=== PATIENT | female | born 1960 | race Caucasian/White ===

== ENCOUNTER → 2017-08-07 | Outpatient (CLI) | payer BC ==
[~2017-08-07] MED LIST: RNT150T PO
--- NOTE | 2017-08-07 18:13 | Diagnostic Imaging Report ---
Bilateral screening mammogram 2D views with tomosynthesis. The current study was also evaluated with a Computer Aided Detection (CAD) system. INDICATION: Screening. No current complaints stated on the questionnaire. COMPARISON: 07/15/2015. FINDINGS: The breasts are composed of heterogeneously dense parenchyma which may decrease mammographic sensitivity. Allowing for technique and positional differences, no suspicious change is seen. IMPRESSION: No significant change. ACR BI-RADS Category 2: Benign findings. Result letter will be mailed to the patient. Note: At least 10% of breast cancer is not imaged by mammography. Dictated by: Dictated on workstation # [id number]
== END ==
LOC: RAD 15:21
PROVIDERS: ATTEND Nurse Practitioner Family
DX: Z12.31 Encounter for screening mammogram for malignant neoplasm of breast (principal)
CPT/HCPCS: 77067

== ENCOUNTER → 2018-02-11 | Outpatient (CLI) | payer BC ==
--- NOTE | 2018-02-11 15:18 | Diagnostic Imaging Report ---
INDICATION: Fall with pain to the right third and fourth fingers. TIME OF EXAMINATION: 3:22 PM. FINDINGS: Three views of the right hand were obtained. The metacarpals are intact. The phalanges appear intact. No fractures are seen. The soft tissues are unremarkable. The carpus is unremarkable. IMPRESSION: No acute bony abnormality is detected. Dictated by: Dictated on workstation # [id number]
== END ==
LOC: RAD 14:54
PROVIDERS: ATTEND Nurse Practitioner Family
DX: M79.644 Pain in right finger(s) (principal); W19.XXXA Unspecified fall, initial encounter
CPT/HCPCS: 73130

== ENCOUNTER 2019-05-26 10:30 | Outpatient (CLI) | payer BC ==
[~2019-05-26] VITALS: Ht 172.7 cm; Wt 76.9 kg
== END 2019-05-26 11:15 | disposition home or self-care (01) ==
LOC: PREOP 10:30
PROVIDERS: ATTEND Surgery
DX: Z01.818 Encounter for other preprocedural examination (principal)

== ENCOUNTER 2019-05-27 09:09 | Day surgery (SDC) | payer BC ==
[2019-05-27] MEDS ORDERED: NS IV 500 ML 500 ML ONE (09:17)
--- NOTE | 2019-05-27 09:33 | Conscious Sedation/ASA ---
Conscious Sedation Pre-Proced Time 09:30 ASA Score 2 For ASA 3 and 4: Consider anesthesia and medical clearance. Also, for patients with a history of failed moderate sedation consider anesthesia. Airway Lungs Heart ASA score ASA 1: a normal healthy patient ASA 2: a patient with a mild systemic disease (mid diabetes, controlled hypertension, obesity ASA 3: a patient with a severe systemic disease that limits activity (angina, COPD, prior Myocardial infarction) ASA 4: a patient with an incapacitating disease that is a constant threat to life (CHF, renal failure) ASA 5: a moribund patient not expected to survive 24 hrs. (ruptured aneurysm) ASA 6: a declared brain- patient whose organs are being harvested. For emergent operations, add the letter E after the classification Mallampati Classification Grade 2 Sedation Plan Analgesia, Amnesia, Plan communicated to team members, Discussed options with patient/fam, Discussed risks with patient/fam The patient is an appropriate candidate to undergo the planned procedure, sedation, and anesthesia. The patient immediately re-assessed prior to indication. CHICHO WILSON MD May 27, 2019 09:33
--- NOTE | 2019-05-27 09:33 | Progress Note-Pre Operative ---
Pre-Operative Progress Note H&P Reviewed The H&P was reviewed, patient examined and no changes noted. Date Seen by Provider: May 27, 2019 Time Seen by Provider: :30 Date H&P Reviewed: May 27, 2019 Time H&P Reviewed: :30 Pre-Operative Diagnosis: screening colonoscopy CHICHO WILSON MD May 27, 2019 09:33
--- NOTE | 2019-05-27 09:35 | Discharge Inst-Surgical ---
D/C Lap Instructions-STEVE Follow Up Activity as tolerated High Fiber Diet 25g or more per day Avoid Alcohol, Caffeine, Spicy [place] and Acid foods. Drink 64 fluid oz or more of fluids per day. Symptoms to Report: Fever over 101 degree F, Nausea/Vomiting If any problems/questions: Contact your physician or go to Emergency Room CHICHO WILSON MD May 27, 2019 09:35
[2019-05-27] MEDS ORDERED: morphine INJ 10 MG/ML 1ML (SYR OR VIAL) IVP PRN ×2 (09:45)
[2019-05-27] MEDS ORDERED: ACETAMINOPHEN 325 MG TABLET PO PRN (09:45)
[2019-05-27] MEDS ORDERED: HYDROcodone/APAP 5 MG/325 MG (LORTAB) TAB PO PRN (09:45)
[2019-05-27] MEDS ORDERED: ONDANSETRON 4 MG/2 ML (SDV) Z0FRAN IVP PRN (09:45)
[2019-05-27] MEDS ORDERED: NS IV 500 ML 500 ML IV PRN (09:49)
[2019-05-27 09:51] VITALS: BP 138/96
[2019-05-27] MEDS ORDERED: LIDOCAINE JELLY 2% 6 ML SYRINGE MM PRN (10:00)
[2019-05-27] MEDS ORDERED: MIDAZOLAM 2 MG/2 ML (VERSED) VIAL IVP ONE (10:00)
[2019-05-27] MEDS ORDERED: fentaNYL INJECTION 100 MCG/2 ML AMP IVP ONE (10:00)
[2019-05-27] MEDS ORDERED: fentaNYL INJECTION 100 MCG/2 ML AMP ONE ×2 (10:29→10:41)
[2019-05-27] MEDS ORDERED: MIDAZOLAM 2 MG/2 ML (VERSED) VIAL ONE ×6 (10:29→10:46)
[2019-05-27 11:30] VITALS: BP 109/60
--- NOTE | 2019-05-27 12:44 | Progress Note-Post Operative ---
Post-Operative Progess Note Surgeon (s)/Instructor Painting (s) Surgeon CHICHO WILSON MD Instructor Painting: none Pre-Operative Diagnosis screening colonoscopy Post-Operative Diagnosis mild chronic stage 2 ext and int hemorrhoids. Procedure & Operative Findings Date of Procedure 05/27/19 Procedure Performed/Findings colonoscopy Anesthesia Type cs Estimated Blood Loss Estimated blood loss (mL): minimal Specimens/Packing Specimens Removed none CHICHO WILSON MD May 27, 2019 12:44
--- NOTE | 2019-05-27 17:26 | OPERATIVE REPORT ---
DATE OF SERVICE: 05/27/2019 ATTENDING PRIMARY CARE PHYSICIAN: Dusty Gibbs MD. PREOPERATIVE DIAGNOSIS: Screening colonoscopy. POSTOPERATIVE DIAGNOSIS: Mild chronic stage II external and internal hemorrhoids, remainder of the colon and rectum were normal. PROCEDURE PERFORMED: Colonoscopy. SURGEON: Chicho Wilson MD. ANESTHESIA: Conscious sedation. ESTIMATED BLOOD LOSS: Minimal. FINDINGS: Mild chronic stage II external and internal hemorrhoids, remainder of the colon and rectum were normal. DISPOSITION: The patient tolerated the procedure well. INDICATIONS: The patient is a 58-year-old female in need of a screening colonoscopy. She has not had a colonoscopy up to this point in her life. She states for the most part, she is doing well, does not report any major issues of diarrhea nor constipation as well as no red blood per rectum nor any dark tarry stools. She does have a remote family history of colon cancer with her maternal grandmother and grandfather having the disease. There is no first-degree family history of the disease. DESCRIPTION OF PROCEDURE: The patient was brought to the endoscopy suite, laid in left lateral decubitus position. After adequate IV pain and sedating medications and conscious sedation anesthesia, a digital rectal examination was performed. Mild chronic stage II external and internal hemorrhoids were identified, which were not actively edematous nor inflamed and no bleeding. Normal sphincter tone was felt and there were no palpable masses. The endoscope was gently intubated at the esophageal opening and esophagus was insufflated. The endoscope was then advanced to the valves of [employer] of the rectum with no polyps or any neoplasms identified. The endoscope was then advanced through the sigmoid colon where no diverticulosis identified. The endoscope was then advanced to the remainder of the descending, transverse and ascending colon to the cecum. These segments were normal. There were no polyps or any neoplasms identified throughout the colon or rectum. The endoscope was then slowly withdrawn while taking a second look and suctioning residual air with no additional findings. The patient tolerated the procedure well. We will recommend a high fiber diet with at least 25 grams of fiber daily as well as significant amounts of water to promote soft stools on a daily basis. She does not need another colonoscopy for another 10 years; however, sooner if she becomes symptomatic. Job ID: [id number] DocumentID: [id number] Dictated Date: 05/27/2019 12:49:56 [employer] Date: 05/27/2019 17:26:12 Dictated By: CHICHO WILSON MD MTDD
== END 2019-05-27 12:05 | disposition home or self-care (01) ==
LOC: ENDO 09:09
PROVIDERS: ATTEND Surgery
DX: Z12.11 Encounter for screening for malignant neoplasm of colon (principal); K64.1 Second degree hemorrhoids; Z80.0 Family history of malignant neoplasm of digestive organs; F41.9 Anxiety disorder, unspecified; Z79.899 Other long term (current) drug therapy; Z87.891 Personal history of nicotine dependence

== ENCOUNTER → 2019-07-28 | Outpatient (CLI) | payer BC ==
--- NOTE | 2019-07-28 10:39 | Diagnostic Imaging Report ---
INDICATION: Screening for osteoporosis. COMPARISON: None. FINDINGS: There are no prior studies available for comparison. The bone mineral density of the hips and spine was measured. The T score for the spine is -3.6. This does indicate osteoporosis. The total T score for the left hip is -2.4. The T score for the left femoral neck is also -2.4. These values indicate severe osteopenia. The T score values for the right hip and right femoral neck are -2.0 and -2.3. These also indicate severe osteopenia. AP Spine L1-L4: [BMD (g/cm2): 0.764] [T-Score: -3.6] [Z-Score: -2.9] [BMD Previous: NA] [BMD % Change: NA] LT Hip Neck: [BMD (g/cm2): 0.702] [T-Score: -2.4] [Z-Score: -1.5] LT Hip Total: [BMD (g/cm2):0.711] [T-Score:-2.4] [Z-Score: -1.8] [BMD Previous: NA] [BMD % Change: NA] RT Hip Neck: [BMD (g/cm2):0.712] [T-Score:-2.3] [Z-Score:-1.4] RT Hip Total: [BMD (g/cm2):0.761] [T-score:-2.0] [Z-Score:-1.4] [BMD Previous:NA] [BMD % Change:NA] *Indicates significant change from prior examination based on 95% confidence level. World Health Organization criteria for BMD interpretation classify patients as Normal (T-score at or above -1.0), Osteopenic (T-score between -1.0 and -2.5) or Osteoporotic (T-score at or below -2.5). LIMITATIONS AND MODIFICATION: None. FRACTURE RISK (FRAX SCORE): The ten year probability of (%): Major Osteoporotic Fracture: [18.8] Hip Fracture: [3.6] IMPRESSION: 1. There is osteoporosis of the spine. 2. There is severe osteopenia of the hips and femoral necks. 3. See below National Osteoporosis Foundation guidelines on when to potentially initiate pharmacologic therapy. Based on the National Osteoporosis Foundation Guidelines, pharmacologic treatment should be initiated in any of the following, unless clinical conditions suggest otherwise: * Any patient with prior fragility fracture of the hip or vertebrae. A spine fracture indicates 5X risk for subsequent spine fracture and 2X risk for subsequent hip fracture. * Osteoporosis (T-score <-2.5). * Postmenopausal women and men age 50 and older with low bone mass/osteopenia (T-score between -1.0 and -2.5) by DXA and 10-year major osteoporotic fracture greater than 20% or a 10-year probability of hip fracture greater than 3%. These fracture risks are supplied above in the FRAX score, if applicable. * Clinician judgement and/or patient preferences may indicate treatment for people with 10-year fracture probabilities above or below these levels. Dictated by: Dictated on workstation # [id number]
== END ==
LOC: RAD 08:48
PROVIDERS: ATTEND Nurse Practitioner Family
DX: Z13.820 Encounter for screening for osteoporosis (principal); M81.0 Age-related osteoporosis without current pathological fracture; M85.89 Other specified disorders of bone density and structure, multiple sites
CPT/HCPCS: 77080